=== PATIENT | female | born 1930 | race Caucasian/White ===

== ENCOUNTER 2017-03-24 13:41 | Emergency (ER) | payer MEDICARE ==
[2017-03-24 13:48] VITALS: RESP 16; TEMP 98; O2SAT 100
--- NOTE | 2017-03-24 14:39 | ED PDOC ---
Syncope/Near Syncope/Dizziness Time Seen by Provider: 03/24/17 13:54 Chief Complaint (Nursing): Dizziness/Lightheaded Chief Complaint (Provider): Dizziness/Lightheaded History Per: Patient, Family () History/Exam Limitations: no limitations Onset/Duration Of Symptoms: Hrs (2 hours) Current Symptoms Are (Timing): Better Additional Complaint(s): 86 y/o female with history of hypertension presents to the ED complaining of dizziness onset 2 hours ago. Patient said she walked into the kitchen and started feeling dizzy (room spinning). Her noticed she seemed unsteady and caught her and her one dose of blood pressure medications. Denies history of vertigo but reports having a similar episode yesterday. Denies chest pain, shortness of breath, headache, weakness, paresthesia and any further medical complaints. Patient reports feeling better upon arrival. PMD: Miles Simental MD Past Medical History Reviewed: Historical Data, Nursing Documentation, Vital Signs Vital Signs: Last Vital Signs Temp 98.0 F 03/24/17 13:47 Pulse 61 03/24/17 13:47 Resp 16 03/24/17 13:47 BP 126/69 03/24/17 13:47 Pulse Ox 100 03/24/17 13:47 - Medical History PMH: Arthritis, Dementia, HTN, Hyperlipidemia - Surgical History Surgical History: No Surg Hx - Family History Family History: States: Unknown Family Hx - Social History Current smoker - smoking cessation education provided: No Alcohol: None Drugs: Denies - Home Medications Home Medications: Ambulatory Orders Medication Instructions Recorded Memantine [Namenda] 10 mg PO BID 03/24/17 Olmesartan/Hydrochlorothiazide 1 tab PO DAILY 03/24/17 [Benicar Hct 40-25 mg Tablet] Simvastatin 10 mg PO DAILY 03/24/17 - Allergies Allergies/Adverse Reactions: Allergies Allergy/AdvReac Type Severity Reaction Status Date / Time No Known Allergies Allergy Verified 07/13/14 12:59 Review of Systems ROS Statement: Except As Marked, All Systems Reviewed And Found Negative (As per HPI, otherwise negative) Constitutional: Negative for: Weakness, Other (paresthesia) Cardiovascular: Negative for: Chest Pain Respiratory: Negative for: Shortness of Breath Neurological: Positive for: Dizziness. Negative for: Headache Physical Exam - Reviewed Nursing Documentation Reviewed: Yes Vital Signs Reviewed: Yes - Physical Exam Appears: Positive for: Non-toxic, No Acute Distress Head Exam: Positive for: ATRAUMATIC, NORMAL INSPECTION, NORMOCEPHALIC Skin: Positive for: Normal Color, Warm, Dry Eye Exam: Positive for: EOMI, Normal appearance, PERRL Neck: Positive for: Normal, Painless ROM Cardiovascular/Chest: Positive for: Regular Rate, Rhythm. Negative for: Murmur Respiratory: Positive for: Normal Breath Sounds. Negative for: Accessory Muscle Use, Respiratory Distress Gastrointestinal/Abdominal: Positive for: Normal Exam, Bowel Sounds, Soft. Negative for: Tenderness Back: Positive for: Normal Inspection. Negative for: L CVA Tenderness, R CVA Tenderness, Vertebral Tenderness Extremity: Positive for: Normal ROM. Negative for: Pedal Edema, Deformity Neurologic/Psych: Positive for: Alert, washer machine II-XII, Oriented (x3), Cerebellar Tests. Negative for: Motor/Sensory Deficits - ECG O2 Sat by Pulse Oximetry: 100 (RA) Pulse Ox Interpretation: Normal Medical Decision Making Medical Decision Making: Time: 14:17 Initial Impression: New onset of vertigo Plan: Head w/o contrast EKG CMP Ed urine dipstick CBC w/ diff PTT Prothrombin Time Chest x-ray Antivert 25 mg PO Glucose Ortho BP Urinalysis Reevalaution Time: 15:00 Patient is signed out to Dr. Arina Woodard pending full ER workup and reevaluation. Scribe Attestation: Documented by Wilmar Suárez acting as a scribe for Giulia Nielsen MD. Scribe Attestation: All medical record entries made by the Scribe were at my direction and personally dictated by me. I have reviewed the chart and agree that the record accurately reflects my personal performance of the history, physical exam, medical decision making, and the department course for this patient. I have also personally directed, reviewed, and agree with the discharge instructions and disposition. Disposition - Disposition Disposition: Transfer of Care Disposition Time: 15:00 Forms: [employer] (Hungarian) Patient Signed Over To: Arina Woodard (pending full ER workup and reevaluation)
[2017-03-24 15:07] LABS: BASO # 0.1 K/uL (0.0-0.2); BASO % 0.8 % (0.0-2.0); EOS # 0.2 K/uL (0.0-0.7); EOS % 3.3 % (0.0-4.0); LYMPH # 1.2 K/uL (1.0-4.3); LYMPH % 16.8 % (20.0-40.0); MEAN CELL VOLUME 89.1 fl (81.0-99.0); MEAN CORPUSCULAR HEMOGLOBIN 28.9 pg (27.0-31.0); MEAN CORPUSCULAR HGB CONC 32.5 g/dL (33.0-37.0); MONO # 0.4 K/uL (0.0-0.8); MONO % 5.5 % (0.0-10.0); NEUT # 5.3 K/uL (1.8-7.0); NEUT % 73.6 % (50.0-75.0); RED CELL DISTRIBUTION WIDTH 14.7 % (11.5-14.5); WHITE BLOOD COUNT 7.2 K/uL (4.8-10.8)
--- NOTE | 2017-03-24 15:11 | ED PDOC ---
- Laboratory Results Result Diagrams: 03/24/17 14:40 03/24/17 14:40 - ECG O2 Sat by Pulse Oximetry: 100 (RA) Medical Decision Making Medical Decision Making: Time: 15:00 Patient is signed over to me by Dr. Giulia Nielsen pending full ER workup, reassessment and final ER disposition. 340p Orthostatic vital signs demonstrate some dehydration. Fluids ordered. Labs demonstrate UTI. No emergently significant lab abnormalities. Time: 15:[address] FINDINGS: HEMORRHAGE: No intracranial hemorrhage. BRAIN: Diffuse cerebral atrophy and mild chronic microangiopathy are reiterated compared to the prior CT. No significant interval changes identified. There is no mass effect. Corticomedullary differentiation is stable and unremarkable. VENTRICLES: Unremarkable. No hydrocephalus. CALVARIUM: Unremarkable. PARANASAL SINUSES: Unremarkable as visualized. No significant inflammatory changes. MASTOID AIR CELLS: Unremarkable as visualized. No inflammatory changes. OTHER FINDINGS: None. IMPRESSION: Stable limited age related neuro degenerative changes are identified as compared prior head CT 05/19/2015. Follow-up CT or MRI are available as clinically warranted. 5p Orthostatic improved after IVF. Pt has no dizziness. Feels better, but hungry. Scribe Attestation: Documented by Wilmar Suárez acting as a scribe for Arina Woodard MD. Scribe Attestation: All medical record entries made by the Scribe were at my direction and personally dictated by me. I have reviewed the chart and agree that the record accurately reflects my personal performance of the history, physical exam, medical decision making, and the department course for this patient. I have also personally directed, reviewed, and agree with the discharge instructions and disposition. Disposition Counseled Patient/Family Regarding: Studies Performed, Diagnosis, Need For Followup (Findings faxed to Dr Simental's office), Rx Given - Clinical Impression Clinical Impression: Dizziness, UTI (urinary tract infection) - POA Present On Arrival: None - Disposition Referrals: Miles Simental MD [Family Provider] - 03/26/17 ([facility] DR [facility] IN[facility]) Disposition: Routine/Home Disposition Time: 17:00 Condition: IMPROVED Prescriptions: Meclizine HCl 25 mg PO BID PRN #20 tablet PRN Reason: Dizziness Nitrofurantoin Macrocrystals [Macrobid] 1 cap PO BID #14 cap Instructions: Dizziness (ED) Print Language: CROATIAN
[2017-03-24 15:15] LABS: ALB/GLOB RATIO 1.3 (1.0-2.1); ALKALINE PHOSPHATASE 84 U/L (38-126); ALT/SGPT 31 U/L (9-52); AST/SGOT 33 U/L (14-36); BILIRUBIN,TOTAL 0.7 mg/dl (0.2-1.3); BLOOD UREA NITROGEN 15 mg/dl (7-17); CALCIUM 9.3 mg/dL (8.4-10.2); CARBON DIOXIDE 30 mmol/L (22-30); CHLORIDE 100 mmol/L (98-107); GFR AFRICAN-AMERICAN > 60; GLUCOSE,RANDOM 117 mg/dL (65-105); POTASSIUM 4.6 MMOL/L (3.6-5.0); SODIUM 141 mmol/l (132-148); TOTAL PROTEIN 7.8 G/DL (6.3-8.2)
[2017-03-24 15:16] LABS: RBC URINE 4 /hpf (0-3); URINE BACTERIA RARE (<OCC); URINE BILIRUBIN NEGATIVE (NEGATIVE); URINE BLOOD NEGATIVE (NEGATIVE); URINE COLOR YELLOW (YELLOW); URINE GLUCOSE (UA) NEG (Normal); URINE KETONE NEGATIVE (NEGATIVE); URINE LEUKOCYTE ESTERASE MOD Leu/uL (Negative); URINE PROTEIN NEGATIVE (NEGATIVE); URINE UROBILINOGEN 0.2-1.0 mg/dL (0.2-1.0); WBC URINE 27 /hpf (0-5)
[2017-03-24 15:25] LABS: PARTIAL THROMBOPLASTIN TIME 31.6 Seconds (25.6-37.1)
[2017-03-24] MEDS ORDERED: Sodium Chloride 0.9% 500 ML IV STA (15:39)
--- NOTE | 2017-03-24 15:42 | CT ---
PROCEDURE: CT HEAD WITHOUT CONTRAST. HISTORY: Vertigo COMPARISON: Unenhanced head CT 05/19/2015. TECHNIQUE: Axial computed tomography images were obtained through the head/brain without intravenous contrast. Radiation dose: Total exam DLP = 825.94 mGy-cm. This CT exam was performed using one or more of the following dose reduction techniques: Automated exposure control, adjustment of the mA and/or kV according to patient size, and/or use of iterative reconstruction technique. FINDINGS: HEMORRHAGE: No intracranial hemorrhage. BRAIN: Diffuse cerebral atrophy and mild chronic microangiopathy are reiterated compared to the prior CT. No significant interval changes identified. There is no mass effect. Corticomedullary differentiation is stable and unremarkable. VENTRICLES: Unremarkable. No hydrocephalus. CALVARIUM: Unremarkable. PARANASAL SINUSES: Unremarkable as visualized. No significant inflammatory changes. MASTOID AIR CELLS: Unremarkable as visualized. No inflammatory changes. OTHER FINDINGS: None. IMPRESSION: Stable limited age related neuro degenerative changes are identified as compared prior head CT 05/19/2015. Follow-up CT or MRI are available as clinically warranted.
[2017-03-24 17:33] VITALS: BP 143/74; PULSE 60
--- NOTE | 2017-03-24 18:04 | RAD ---
HISTORY: Dizziness COMPARISON: Chest radiographs 07/13/2014. FINDINGS: LUNGS: No active pulmonary disease. PLEURA: No significant pleural effusion identified, no pneumothorax apparent. CARDIOVASCULAR: Normal. OSSEOUS STRUCTURES: No significant abnormalities. VISUALIZED UPPER ABDOMEN: Normal. OTHER FINDINGS: None. IMPRESSION: No interval acute cardiopulmonary disease appreciated.
--- NOTE | 2017-03-26 12:34 | CARD ---
APPROVED REPORT EKG Measurement Heart [id number] <Conclusion> Normal sinus rhythm Normal ECG
== END 2017-03-24 17:40 | disposition home or self-care (01) ==
LOC: H.ER 13:41
DX: R42 Dizziness and giddiness (principal); N39.0 Urinary tract infection, site not specified; E78.5 Hyperlipidemia, unspecified; F03.90 Unspecified dementia, unspecified severity, without behavioral disturbance, psychotic disturbance, mood disturbance, and anxiety; I10 Essential (primary) hypertension
CPT/HCPCS: 70450; 71010; 80053; 81003; 82948; 85025; 85610; 85730; 93005; 96360; 99285; J7040

== ENCOUNTER 2017-08-31 13:47 | Inpatient (IN) | payer OTHER ==
--- NOTE | 2017-08-31 14:42 | CT ---
PROCEDURE: CT HEAD WITHOUT CONTRAST. HISTORY: generalized weakness COMPARISON: CT head dated 03/24/2017. TECHNIQUE: Axial computed tomography images were obtained through the head/brain without intravenous contrast. Radiation dose: Total exam DLP = 765.5 mGy-cm. This CT exam was performed using one or more of the following dose reduction techniques: Automated exposure control, adjustment of the mA and/or kV according to patient size, and/or use of iterative reconstruction technique. FINDINGS: HEMORRHAGE: No intracranial hemorrhage. BRAIN: No mass effect or edema. Atrophy. Chronic microvascular ischemic changes. VENTRICLES: Prominent. No hydrocephalus. CALVARIUM: Unremarkable. PARANASAL SINUSES: Unremarkable as visualized. No significant inflammatory changes. MASTOID AIR CELLS: Unremarkable as visualized. No inflammatory changes. OTHER FINDINGS: None. IMPRESSION: No acute intracranial pathology. Age-related changes.
--- NOTE | 2017-08-31 14:58 | ED PDOC ---
HPI: General Adult Time Seen by Provider: 08/31/17 13:56 Chief Complaint (Nursing): Weakness/Neurological Deficit Chief Complaint (Provider): general weakness, difficulty breathing History Per: Patient, Family, Weight Clerk History/Exam Limitations: no limitations Onset/Duration Of Symptoms: Days (2 wks'), Gradual Current Symptoms Are (Timing): Still Present Severity: Moderate Additional Complaint(s): 87yo female arrives w son from Dr Simental's office where she presented earlier with generalized weakness, shortness of breathing and difficulty ambulating for last 10-14days. [facility] states [facility] and she had very difficult time ambulating, was constantly weak with cough, SOB and notes lower extremity pains. Denies falls, fever, chest pain, focal weakness, edema or syncope. Past Medical History Reviewed: Historical Data, Nursing Documentation, Vital Signs Vital Signs: Last Vital Signs Temp 98.1 F 08/31/17 14:04 Pulse 60 08/31/17 14:59 Resp 18 08/31/17 14:04 BP 129/69 08/31/17 14:04 Pulse Ox 98 08/31/17 14:59 - Medical History PMH: Arthritis, Dementia, HTN, Hyperlipidemia - Family History Family History: States: Unknown Family Hx - Living Arrangements Living Arrangements: With Family - Social History Current smoker - smoking cessation education provided: No - Home Medications Home Medications: Ambulatory Orders Medication Instructions Recorded Meclizine HCl 25 mg PO BID PRN #20 tablet 03/24/17 Memantine [Namenda] 10 mg PO BID 03/24/17 Nitrofurantoin Macrocrystals 1 cap PO BID #14 cap 03/24/17 [Macrobid] Olmesartan/Hydrochlorothiazide 1 tab PO DAILY 03/24/17 [Benicar Hct 40-25 mg Tablet] Simvastatin 10 mg PO DAILY 03/24/17 - Allergies Allergies/Adverse Reactions: Allergies Allergy/AdvReac Type Severity Reaction Status Date / Time No Known Allergies Allergy Verified 08/31/17 14:04 Review of Systems Constitutional: Positive for: Weakness, Malaise ENT: Negative for: Ear Pain, Throat Pain Cardiovascular: Positive for: Palpitations, Orthopnea. Negative for: Chest Pain Respiratory: Positive for: Cough, Shortness of Breath Gastrointestinal: Negative for: Vomiting, Abdominal Pain Genitourinary Female: Negative for: Dysuria, Hematuria Musculoskeletal: Positive for: Arm Pain, Back Pain, Leg Pain. Negative for: Neck Pain Skin: Negative for: Rash, Lesions, Jaundice Neurological: Positive for: Dizziness. Negative for: Numbness, Altered Mental Status Psych: Negative for: Suicidal ideation Physical Exam - Reviewed Nursing Documentation Reviewed: Yes Vital Signs Reviewed: Yes - Physical Exam Appears: Positive for: Non-toxic Head Exam: Positive for: ATRAUMATIC, NORMAL INSPECTION, NORMOCEPHALIC Skin: Positive for: Normal Color, Warm, DRY Eye Exam: Positive for: EOMI, Normal appearance, PERRL ENT: Positive for: Normal ENT Inspection Neck: Positive for: Normal, Painless ROM Cardiovascular/Chest: Positive for: Regular Rate, Rhythm Respiratory: Positive for: Decreased Breath Sounds Pulses-Radial (L): 3+/4+ Pulses-Radial (R): 3+/4+ Gastrointestinal/Abdominal: Positive for: Soft. Negative for: Tenderness, Guarding Back: Positive for: Normal Inspection Extremity: Positive for: Tenderness (b.l knees), Pedal Edema (trace) Neurologic/Psych: Positive for: Alert, Oriented. Negative for: Motor/Sensory Deficits - ECG ECG: Positive for: Interpreted By Ri ECG Rhythm: Positive for: Sinus Rhythm, Nonspecific Changes Rate: 60 (t wave changes) O2 Sat by Pulse Oximetry: 98 Pulse Ox Interpretation: Normal Medical Decision Making Medical Decision Making: workup for dyspnea and gen weakness initiated labs/cultures/ CT brain/ XRay knees and CXR Accession No. : [id number] Patient Name / ID : TOÑO SWAIN / [id number] Exam Date : 08/31/2017 14:33:35 ( Approved ) Study Comment : Sex / Age : F / 87Y Creator : Gato Sheehan MD Dictator : Gato Sheehan MD Sanitation Truck Driver : Studio Operator : Gato Sheehan MD Approver2 : Report Date : 08/31/2017 14:40:57 My Comment : PROCEDURE: CT HEAD WITHOUT CONTRAST. HISTORY: generalized weakness COMPARISON: CT head dated 03/24/2017. TECHNIQUE: Axial computed tomography images were obtained through the head/brain without intravenous contrast. Radiation dose: Total exam DLP = 765.5 mGy-cm. This CT exam was performed using one or more of the following dose reduction techniques: Automated exposure control, adjustment of the mA and/or kV according to patient size, and/or use of iterative reconstruction technique. FINDINGS: HEMORRHAGE: No intracranial hemorrhage. BRAIN: No mass effect or edema. Atrophy. Chronic microvascular ischemic changes. VENTRICLES: Prominent. No hydrocephalus. CALVARIUM: Unremarkable. PARANASAL SINUSES: Unremarkable as visualized. No significant inflammatory changes. MASTOID AIR CELLS: Unremarkable as visualized. No inflammatory changes. OTHER FINDINGS: None. IMPRESSION: No acute intracranial pathology. Age-related changes. Accession No. : [id number] Patient Name / ID : TOÑO SWAIN / [id number] Exam Date : 08/31/2017 14:18:09 ( Approved ) Study Comment : Sex / Age : F / 87Y Creator : regan paniagua Dictator : Gato Sheehan MD Sanitation Truck Driver : Studio Operator : Gato Sheehan MD Approver2 : Report Date : 08/31/2017 15:18:06 My Comment : HISTORY: chest pain/ r/o infiltrate COMPARISON: Chest radiograph dated 03/24/2017. TECHNIQUE: Chest PA and lateral FINDINGS: LUNGS: No active pulmonary disease. PLEURA: No significant pleural effusion identified. No pneumothorax apparent. CARDIOVASCULAR: Atherosclerotic aortic calcifications. Cardiomediastinal silhouette stably enlarged. OSSEOUS STRUCTURES: Unchanged. VISUALIZED UPPER ABDOMEN: Normal. OTHER FINDINGS: None. IMPRESSION: No active disease. Disposition - Clinical Impression Clinical Impression: Episode of generalized weakness - Patient ED Disposition Is Patient to be Admitted: Transfer of Care - Disposition Disposition: Transfer of Care Disposition Time: 15:42 Condition: FAIR Instructions: Weakness (ED) Forms: [employer] (Pashto) Patient Signed Over To: Jared Almaraz Handoff Comments: pending labs and dispo
--- NOTE | 2017-08-31 15:25 | RAD ---
HISTORY: chest pain/ r/o infiltrate COMPARISON: Chest radiograph dated 03/24/2017. TECHNIQUE: Chest PA and lateral FINDINGS: LUNGS: No active pulmonary disease. PLEURA: No significant pleural effusion identified. No pneumothorax apparent. CARDIOVASCULAR: Atherosclerotic aortic calcifications. Cardiomediastinal silhouette stably enlarged. OSSEOUS STRUCTURES: Unchanged. VISUALIZED UPPER ABDOMEN: Normal. OTHER FINDINGS: None. IMPRESSION: No active disease.
--- NOTE | 2017-08-31 15:26 | RAD ---
PROCEDURE: Bilateral Knee Radiographs. HISTORY: bilateral knee pain difficulty ambulating COMPARISON: None. FINDINGS: BONES: Right Knee: No acute fracture. Left Knee: No acute fracture. JOINTS: Right Knee: Tricompartmental narrowing, worst in the medial tibiofemoral compartment with mild degenerative spurring. Left knee: Tricompartmental narrowing. SOFT TISSUES: Right Knee: Normal. Left Knee: Normal. JOINT EFFUSION: Right Knee: None. Left Knee: None. OTHER FINDINGS: None. IMPRESSION: No demonstrated fracture or dislocation. Bilateral knee degenerative changes, right slightly worse than left.
[2017-08-31 15:40] LABS: BASO # 0.1 K/uL (0.0-0.2); BASO % 1.1 % (0.0-2.0); EOS # 0.3 K/uL (0.0-0.7); EOS % 4.7 % (0.0-4.0); HEMOGLOBIN 13.4 g/dL (12.0-16.0); LYMPH # 1.8 K/uL (1.0-4.3); LYMPH % 26.6 % (20.0-40.0); MEAN CELL VOLUME 88.5 fl (81.0-99.0); MEAN CORPUSCULAR HEMOGLOBIN 29.7 pg (27.0-31.0); MEAN CORPUSCULAR HGB CONC 33.5 g/dL (33.0-37.0); MEAN PLATELET VOLUME 8.6 fl (7.2-11.7); MONO # 0.5 K/uL (0.0-0.8); NEUT % 59.6 % (50.0-75.0); NRBC % 0.1 % (0.0-0.0); RBC 4.51 Mil/uL (3.80-5.20); RED CELL DISTRIBUTION WIDTH 14.7 % (11.5-14.5); WHITE BLOOD COUNT 6.7 K/uL (4.8-10.8)
[2017-08-31 15:49] LABS: ALB/GLOB RATIO 1.1 (1.0-2.1); ALBUMIN 3.8 g/dL (3.5-5.0); ALT/SGPT 32 U/L (9-52); AST/SGOT 51 U/L (14-36); BLOOD UREA NITROGEN 20 mg/dl (7-17); CALCIUM 9.4 mg/dL (8.4-10.2); GFR AFRICAN-AMERICAN > 60; GFR NON-AFRICAN AMERICAN > 60
--- NOTE | 2017-08-31 15:50 | ED PDOC ---
"- Laboratory Results Result Diagrams: 08/31/17 15:19 08/31/17 15:19 - ECG O2 Sat by Pulse Oximetry: 98 (RA) Pulse Ox Interpretation: Normal Medical Decision Making Medical Decision Making: Time: 1499 --Patient is endorsed is provider by Dr. Sid Lucas. Pending lab results and final disposition. Time: 2128 --CTA chest FINDINGS: Limitations: Motion artifact - mild to moderate. Streak artifact - mild. Pulmonary arteries: Multiple filling defect within lobar, segmental, subsegmental branches. No saddle embolus. Aorta: [id number] atherosclerotic disease. No aneurysm. Lungs: Minimal atelectasis/scarring. No consolidation. Mild apical scarring. Few calcified granulomas. Few pulmonary nodules, up to 0.3 cm. Pleural space: No significant effusion. No pneumothorax. Heart: Borderline cardiomegaly. No significant pericardial effusion. Mild coronary artery calcifications. Bowing of interventricular septum compatible with heart strain. Bones/joints: Degenerative changes of spine. No acute fracture. PRETTY LUNDBERGDES | Final Radiology Report CONFIDENTIALITY STATEMENT This report is intended only for use by the referring physician, and only in accordance with law. If you received this in error, call [phone]. Page 2 of 2 Soft tissues: Unremarkable. Lymph nodes: No pathologically enlarged lymph nodes. Gallbladder and bile ducts: Cholecystectomy. Kidneys and ureters: Probable 6.2 cm LEFT renal cyst. IMPRESSION: 1. Pulmonary emboli with heart strain. 2. Pulmonary nodules. For low-risk patients, no follow-up is necessary. For high -risk patients (smoking history or other known risk factors) an optional CT at 12 months could be performed. 3. Incidental/non-acute findings are described above. CT positive for PE. Pt is hemodynamically stable and not hypoxic. Some evidence of heart strain on CT but given other factors will not give tPa but rather tx with Lovenox. Echo in AM. Scribe Attestation: Documented by Yvette Teixeira, acting as a scribe for Jared Almaraz MD. Provider Scribe Attestation: All medical record entries made by the Scribe were at my direction and personally dictated by me. I have reviewed the chart and agree that the record accurately reflects my personal performance of the history, physical exam, medical decision making, and the department course for this patient. I have also personally directed, reviewed, and agree with the discharge instructions and disposition. Disposition - Clinical Impression Clinical Impression: Episode of generalized weakness, Pulmonary embolus - POA Present On Arrival: None - Disposition Disposition: Admitted as In-Patient Disposition Time: 21:51 Condition: FAIR Instructions: Weakness (ED) Forms: [employer] (Nigerien)"
[2017-08-31 15:58] LABS: B-TYPE NATRIURETIC PEPTIDE 614 pg/ml (0-900)
[2017-08-31 17:17] LABS: URINE BACTERIA OCC (<OCC); URINE BILIRUBIN NEGATIVE (NEGATIVE); URINE BLOOD NEGATIVE (NEGATIVE); URINE CLARITY CLEAR (Clear); URINE COLOR YELLOW (YELLOW); URINE GLUCOSE (UA) NEG (Normal); URINE LEUKOCYTE ESTERASE LARGE Leu/uL (Negative); URINE PROTEIN NEGATIVE (NEGATIVE); URINE UROBILINOGEN 0.2-1.0 mg/dL (0.2-1.0)
[2017-08-31 17:18] LABS: SQUAMOUS EPITHIAL 3 /hpf (0-5)
[2017-08-31 17:19] LABS: RENAL EPITHELIAL 2 /hpf (0-3)
[2017-08-31] MEDS ORDERED: Tmp-Smz 800 mg-160 mg DS Tab PO STA (17:25)
[2017-08-31] MEDS ORDERED: Tmp-Smz 800 mg-160 mg DS Tab ONE (18:16)
[2017-08-31] MEDS ORDERED: Sodium Chloride 0.9% 100 ML ONE (18:49)
[2017-08-31] MEDS ORDERED: Iodixanol 320 MG/ML 100 ML BOTTLE IV ONE (18:49)
--- NOTE | 2017-08-31 21:30 | CT ---
EXAM: CT Angiography Chest With Intravenous Contrast CLINICAL HISTORY: 87 years old, female; Signs and symptoms; Shortness of breath; Additional info: R/O pe TECHNIQUE: Axial computed tomographic angiography images of the chest with intravenous contrast using pulmonary embolism protocol. All CT scans at this facility use one or more dose reduction techniques, viz.: automated exposure control; ma/kV adjustment per patient size (including targeted exams where dose is matched to indication; i.e. head); or iterative reconstruction technique. MIP reconstructed images were created and reviewed. Coronal and sagittal reformatted images were created and reviewed. CONTRAST: 100 mL of [id number] administered intravenously. COMPARISON: CR - CHEST TWO VIEWS (PA/LAT) 2017-08-31 14:18 FINDINGS: Limitations: Motion artifact - mild to moderate. Streak artifact - mild. Pulmonary arteries: Multiple filling defect within lobar, segmental, subsegmental branches. No saddle embolus. Aorta: [id number] atherosclerotic disease. No aneurysm. Lungs: Minimal atelectasis/scarring. No consolidation. Mild apical scarring. Few calcified granulomas. Few pulmonary nodules, up to 0.3 cm. Pleural space: No significant effusion. No pneumothorax. Heart: Borderline cardiomegaly. No significant pericardial effusion. Mild coronary artery calcifications. Bowing of interventricular septum compatible with heart strain. Bones/joints: Degenerative changes of spine. No acute fracture. Soft tissues: Unremarkable. Lymph nodes: No pathologically enlarged lymph nodes. Gallbladder and bile ducts: Cholecystectomy. Kidneys and ureters: Probable 6.2 cm LEFT renal cyst. IMPRESSION: 1. Pulmonary emboli with heart strain. 2. Pulmonary nodules. For low-risk patients, no follow-up is necessary. For high-risk patients (smoking history or other known risk factors) an optional CT at 12 months could be performed. 3. Incidental/non-acute findings are described above.
[2017-08-31] MEDS ORDERED: Enoxaparin 80 mg Syringe SC ONE (22:00)
[2017-08-31] MEDS ORDERED: Pravastatin Sodium 20 MG TAB PO SCH (22:00)
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
--- NOTE | 2017-08-31 23:47 | US ---
EXAM: US Duplex Bilateral Lower Extremity Veins CLINICAL HISTORY: 87 years old, female; Signs and symptoms; Other: Pe TECHNIQUE: Real-time duplex ultrasound scan of the bilateral lower extremity veins integrating B-mode two-dimensional vascular structure, Doppler spectral analysis, color flow Doppler imaging and compression. COMPARISON: No relevant prior studies available. FINDINGS: Right deep veins: Normal color and spectral Doppler flow. Normal compressibility. No deep vein thrombosis. Right superficial veins: Unremarkable. Left deep veins: Normal color and spectral Doppler flow. Normal compressibility. No deep vein thrombosis. Left superficial veins: Unremarkable. Soft tissues: 3.5 x 1.2 x 3.2 cm hypoechoic lesion within left popliteal fossa. IMPRESSION: 1. No evidence of DVT within lower extremities. 2. Probable left Wilder's cyst.
[2017-09-01 06:23] LABS: MEAN CELL VOLUME 87.8 fl (81.0-99.0); MEAN CORPUSCULAR HEMOGLOBIN 29.5 pg (27.0-31.0); MEAN CORPUSCULAR HGB CONC 33.6 g/dL (33.0-37.0); RBC 4.42 Mil/uL (3.80-5.20); RED CELL DISTRIBUTION WIDTH 14.4 % (11.5-14.5); WHITE BLOOD COUNT 7.1 K/uL (4.8-10.8)
[2017-09-01 07:13] LABS: BLOOD UREA NITROGEN 15 mg/dl (7-17); CALCIUM 9.4 mg/dL (8.4-10.2); GFR AFRICAN-AMERICAN > 60; GFR NON-AFRICAN AMERICAN > 60
[2017-09-01 08:46] VITALS: O2SAT 98
[2017-09-01] MEDS ORDERED: Enoxaparin 80 mg Syringe SC SCH (09:00)
[2017-09-01] MEDS ORDERED: HCTZ/Losartan 12.5/50 Tab PO SCH (09:00)
[2017-09-01] MEDS ORDERED: Pneumococcal 23-Valent Vaccine IM ONE (09:00)
--- NOTE | 2017-09-01 09:01 | CP.CCUPN ---
CCU Subjective - Physician Review Subjective (Free Text): 87F sent into ER from PMDs office for eval of progressive Sob and hypotension, found to have evidence of PTE on CTA Chest, no hemodynamic compromise. Awake, non-distressed, already got OOB herself into the chair, denies any CP or exertional SOB. 96% SPO2 on RA. Other VS and I/Os reviewed. ROS: No other pertinent negs or positives on 10+ system review obtainable from intubated and sedated patient. Allergies: NKDA Home Meds: Aricept, Namenda, Vascepa, Singulair,Relafen, simvastatin, Olmesartan /HCTZ PMSFH: All other Nursing and physician documentation reviewed to date; no new pertinent info noted relevant to current medical problems. EXAM- HEENT: no icterus, no gaze preference, pupils equal and reactive NECK: No JVD, supple, carotids equal upstroke bilat/no bruits CHEST: decreased BS bases, no wheezes audible HEART: regular joanna, distant, S1S2, no rubs. ABD: soft, no distention, no tympany, no palp tenderness, BS hypoactive. EXT: No peripheral/ digital cyanosis, no calf tenderness or palpable cords, distal pulses intact and symmetrical. NEURO: no focal motor deficits SKIN: no rashes, warm and dry. LABS: WBC= 7.1 HGB= 13.0 PLTs= 289K Na= 139 K= 3.4 CL= 101 HCO3= 25 BUN/Cr= 15/0.8 BS= 101 IMPRESSION / MAJOR PROBLEMS NOW: 1. Acute Resp Insufficiency 2. Acute/Subacute PTE- mostly segmental/subsegmental. 3. Hypokalemia 4. Hypotension with h/o HTN PLAN: 1. Troponin is negative, venous LE Doppler US is negative; ECHO pending. Started on AC with Lovenox already, initiate outpatient AC today. 2. Supplement K. 3. Adjust outpatient anti-HTN meds. Watch HR on Aricept/Namenda. 4. Stable for Tele bed. CCU Objective - Vital Signs / Intake & Output Vital Signs (Last 4 hours): Vital Signs Temp Pulse Resp BP Pulse Ox 09/01/17 08:00 98.5 F 80 24 132/90 98 09/01/17 06:00 64 16 104/64 95 Intake and Output (Last 8hrs): Intake & Output 04/27/18 04/28/18 04/28/18 22:59 06:59 14:59 Intake Total 10 Output Total 150 Balance 10 -150 Intake: IV 10 Output: Urine 150 Urine, Voided 150
[2017-09-01 09:17] VITALS: BMI 28.9
--- NOTE | 2017-09-01 11:01 | CP.PCM.DIS ---
Provider - Provider Date of Admission: 08/31/17 21:47 Attending physician: Fela Parker MD Primary care physician: Dr. Simental Time Spent in preparation of Discharge (in minutes): 15 Hospital Course - Lab Results Lab Results: Most Recent Lab Values WBC 7.1 K/uL (4.8-10.8) 09/01/17 05:30 RBC 4.42 Mil/uL (3.80-5.20) 09/01/17 05:30 Hgb 13.0 g/dL (12.0-16.0) 09/01/17 05:30 Hct 38.8 % (34.0-47.0) 09/01/17 05:30 MCV 87.8 fl (81.0-99.0) 09/01/17 05:30 MCH 29.5 pg (27.0-31.0) 09/01/17 05:30 MCHC 33.6 g/dL (33.0-37.0) 09/01/17 05:30 RDW 14.4 % (11.5-14.5) 09/01/17 05:30 Plt Count 289 K/uL (130-400) 09/01/17 05:30 MPV 8.6 fl (7.2-11.7) 08/31/17 15:19 Neut % (Auto) 59.6 % (50.0-75.0) 08/31/17 15:19 Lymph % (Auto) 26.6 % (20.0-40.0) 08/31/17 15:19 [place] % (Auto) 8.0 % (0.0-10.0) 08/31/17 15:19 Eos % (Auto) 4.7 % (0.0-4.0) H 08/31/17 15:19 Baso % (Auto) 1.1 % (0.0-2.0) 08/31/17 15:19 Neut # (Auto) 4.0 K/uL (1.8-7.0) 08/31/17 15:19 Lymph # (Auto) 1.8 K/uL (1.0-4.3) 08/31/17 15:19 [place] # (Auto) 0.5 K/uL (0.0-0.8) 08/31/17 15:19 Eos # (Auto) 0.3 K/uL (0.0-0.7) 08/31/17 15:19 Baso # (Auto) 0.1 K/uL (0.0-0.2) 08/31/17 15:19 APTT 30.7 Seconds (25.6-37.1) 08/31/17 15:19 D-Dimer, Quantitative 2102 ng/mlDDU (0-230) H 08/31/17 16:57 Sodium 139 mmol/l (132-148) 09/01/17 05:30 Potassium 3.4 MMOL/L (3.6-5.0) L 09/01/17 05:30 Chloride 101 mmol/L (98-107) 09/01/17 05:30 Carbon Dioxide 25 mmol/L (22-30) 09/01/17 05:30 Anion Gap 16 (10-20) 09/01/17 05:30 BUN 15 mg/dl (7-17) 09/01/17 05:30 Creatinine 0.8 mg/dl (0.7-1.2) 09/01/17 05:30 Est GFR ( Amer) > 60 09/01/17 05:30 Est GFR (Non-Af Amer) > 60 09/01/17 05:30 POC Glucose (mg/dL) 106 mg/dL (65-110) 08/31/17 14:13 Random Glucose 101 mg/dL (65-105) 09/01/17 05:30 Calcium 9.4 mg/dL (8.4-10.2) 09/01/17 05:30 Total Bilirubin 0.7 mg/dl (0.2-1.3) 08/31/17 15:19 AST 51 U/L (14-36) H D 08/31/17 15:19 ALT 32 U/L (9-52) 08/31/17 15:19 Alkaline Phosphatase 71 U/L (38-126) 08/31/17 15:19 Total Creatine Kinase 70 U/L (30-135) 08/31/17 15:19 Troponin I 0.0260 ng/mL (0.00-0.120) 08/31/17 15:19 NT-Pro-B Natriuret Pep 614 pg/ml (0-900) 08/31/17 15:19 Total Protein 7.1 G/DL (6.3-8.2) 08/31/17 15:19 Albumin 3.8 g/dL (3.5-5.0) 08/31/17 15:19 Globulin 3.3 gm/dL (2.2-3.9) 08/31/17 15:19 Albumin/Globulin Ratio 1.1 (1.0-2.1) 08/31/17 15:19 Urine Color Yellow (YELLOW) 08/31/17 16:45 Urine Clarity Clear (Clear) 08/31/17 16:45 Urine pH 6.0 (5.0-8.0) 08/31/17 16:45 Ur Specific [place] 1.010 (1.003-1.030) 08/31/17 16:45 Urine Protein Negative mg/dL (NEGATIVE) 08/31/17 16:45 Urine Glucose (UA) Neg mg/dL (Normal) 08/31/17 16:45 Urine Ketones Negative mg/dL (NEGATIVE) 08/31/17 16:45 Urine Blood Negative (NEGATIVE) 08/31/17 16:45 Urine Nitrate Positive (NEGATIVE) H 08/31/17 16:45 Urine Bilirubin Negative (NEGATIVE) 08/31/17 16:45 Urine Urobilinogen 0.2-1.0 mg/dL (0.2-1.0) 08/31/17 16:45 Ur Leukocyte Esterase Large Charissa/uL (Negative) 08/31/17 16:45 Urine RBC (Auto) 3 /hpf (0-3) 08/31/17 16:45 Urine Microscopic WBC 30 /hpf (0-5) H 08/31/17 16:45 Ur Squamous Epith Cells 3 /hpf (0-5) 08/31/17 16:45 Ur Renal Epithelial Cell 2 /hpf (0-3) 08/31/17 16:45 Urine Bacteria Occ (<OCC) H 08/31/17 16:45 - Hospital Course Hospital Course: 87 y/o female with HTN, HLD, and dementia went to her PCP's office complaining of generalized weakness, difficulty ambulating and SOB. Per family, she had the symptoms for about 2 weeks, but worsened acutely over past few days. She did travel by plane to [facility] just before the symptoms started. Denies f/c/CP/or syncope. Per report she did have low BP at the PCP's office. No prior history of DVT or PE. In ER for CTA chest showed multiple segmental and subsegmental filling defects : (1. Pulmonary emboli with heart strain. ) Patient was admitted in ICU for close monitoring , placed on monitor,strated on Lovenox therapeutic LE Doppler showed no DVT . She remained hemodynamically stable, feeling well, saturating 98 % in RA , sinus rhythm on monitor HR 63 BP 139/69 Discussed all test results with patient and family members. patient has very good family support . Will discharge her home on eliquis [place] 4 [place]. Explained increased risk of bleeding while on eliquis. Her UA resulted as cloudy witH LE, nitrites and bacteria. Will start on PO bactrim for UTI for 5 days Advise to follow up with PMD in 1 week 1.Pulmonary embolus -- most likely subacute 2. UTI 3.Hypertension - controlled 4. Dementia 5. Dyslipidemia Discharge Exam - Head Exam Head Exam: ATRAUMATIC, NORMOCEPHALIC - Eye Exam Eye Exam: EOMI, Normal appearance, PERRL Pupil Exam: NORMAL ACCOMODATION - ENT Exam ENT Exam: Mucous Membranes Moist, Normal Exam - Neck Exam Neck exam: Full Rom, Normal Inspection - Respiratory Exam Respiratory Exam: Clear to PA & Lateral, NORMAL BREATHING PATTERN. absent: Rales, Rhonchi, Wheezes - Cardiovascular Exam Cardiovascular Exam: REGULAR RHYTHM, RRR, +S1, +S2. absent: JVD - GI/Abdominal Exam GI & Abdominal Exam: Normal Bowel Sounds, Soft. absent: Guarding, Rebound, Tenderness - Rectal Exam Rectal Exam: Deferred - Extremities Exam Extremities exam: normal capillary refill, normal inspection, pedal pulses present - Back Exam Back exam: NORMAL INSPECTION - Neurological Exam Neurological exam: Alert, CN II-XII Intact, Oriented x3 - Psychiatric Exam Psychiatric exam: Normal Affect, Normal Mood - Skin Skin Exam: Dry, Normal Color, Warm Discharge Plan - Discharge Medications Prescriptions: Apixaban [Eliquis] 10 mg PO BID #60 tab Sulfamethoxazole/Trimethoprim [Bactrim DS 800 mg-160 mg] 1 tab PO Q12 #10 tab - Follow Up Plan Condition: STABLE Disposition: HOME/ ROUTINE Patient education suggested?: Yes Instructions: Urinary Tract Infection, Adult (DC), Pulmonary Embolism (Blood Clot in the Lungs) (DC), Apixaban, Weakness (ED) Referrals: Miles Simental MD [Family Provider] -
[2017-09-01] MEDS ORDERED: Tmp-Smz 800 mg-160 mg DS Tab PO SCH (11:15)
--- NOTE | 2017-09-01 12:31 | CARD ---
APPROVED REPORT EXAM: Two-dimensional and M-mode echocardiogram with Doppler and color Doppler. Other Information Quality : AverageRhythm : INDICATION Pericardial Effusion 2D DIMENSIONS IVSd1.52 (0.7-1.1cm)LVDd3.65 (3.9-5.9cm) PWd1.26 (0.7-1.1cm)LVDs2.40 (2.5-4.0cm) FS (%) 34.2 % M-Mode DIMENSIONS Left Atrium (MM)3.97 (2.5-4.0cm)IVSd1.59 (0.7-1.1cm) Aortic Root2.90 (2.2-3.7cm)LVDd4.84 (4.0-5.6cm) Aortic Cusp Exc.1.67 (1.5-2.0cm)PWd1.47 (0.7-1.1cm) FS (%) 30 %LVDs3.36 (2.0-3.8cm) Mitral Valve MV E Ynltqwwl97.9cm/sMV DECEL [id number] A Dlmfrqwr24.8cm/s MV MLF111hgY/A ratio0.7MVA (PHT)1.96cm2 TDI Lateral E' Peak V7.41cm/sE/Lateral E'6.6E/Medial E'0.0 Pulmonary Valve PV Peak Wdsyhcfy780.8cm/s Tricuspid Valve TR Peak Xiicdwlt617xg/sTR Peak Gr.59mmHg LEFT VENTRICLE The left ventricle is normal in size. There is normal left ventricular wall thickness on the 2D study. The left ventricular function is normal. The left ventricular ejection fraction is - 55%. The inferior and posterior mendoza appear hypokinetic. There is paradoxical septal motion. The other segments of the LV have good contraction. Transmitral Doppler flow pattern is Grade I-abnormal relaxation pattern. No left ventricle thrombus noted on this study. There is no ventricular septal defect visualized. There is no left ventricular aneurysm. There is no mass noted in the left ventricle. RIGHT VENTRICLE The right ventricle appears moderately dilated on some 2D views. There is normal right ventricular wall thickness. The right ventricular systolic function is normal. ATRIA The left atrium size is normal. There is no thrombus suspected in the left atrium. The right atrium appears mildly dilated on some 2D views. The interatrial septum is intact with no evidence for an atrial septal defect. AORTIC VALVE The aortic valve is normal in structure. No aortic regurgitation is present. There is no aortic valvular stenosis. MITRAL VALVE The mitral valve is normal in structure. There is no evidence of mitral valve prolapse. There is no mitral valve stenosis. There is no mitral valve regurgitation noted. TRICUSPID VALVE The tricuspid valve is normal in structure. There is moderate tricuspid regurgitation. Right ventricular systolic pressure is estimated at 86 mmHg. There is no tricuspid valve prolapse or vegetation. There is no tricuspid valve stenosis. PULMONIC VALVE The pulmonary valve is normal in structure. There is trace pulmonic valvular regurgitation. GREAT VESSELS The aortic root is normal in size. The IVC is normal in size and collapses >50% with inspiration. PERICARDIAL EFFUSION There is a small anterior echo free space. There is no pleural effusion. <Conclusion> The study is only of fair quality. The left ventricle is normal in size and wall thickness on the 2D study.. The left ventricular function is normal. The left ventricular ejection fraction is - 55%. The right ventricle is moderately dilated and the right atrium is mildly dilated. The aortic, mitral and tricuspid valves are normal. There is moderate tricuspid regurgitation. Right ventricular systolic pressure is estimated at 86 mmHg which is severe pulmonary hypertension..
--- NOTE | 2017-09-01 12:37 | CARD ---
APPROVED REPORT EKG Measurement Heart [id number] <Conclusion> Normal sinus rhythm Nonspecific T wave abnormality Abnormal ECG artefact present
[2017-09-01 14:00] VITALS: BP 145/92; PULSE 76; RESP 21; TEMP 98.1
== END 2017-09-01 14:30 | disposition home or self-care (01) | DRG 176 ==
LOC: H.ER 13:47 → H.ERHOLD 21:47 → H.ICU/CCU 09-01 00:57
PROVIDERS: ADMIT Internal Medicine; ATTEND Internal Medicine
DX: I26.99 Other pulmonary embolism without acute cor pulmonale (principal); N39.0 Urinary tract infection, site not specified; I10 Essential (primary) hypertension; E78.5 Hyperlipidemia, unspecified; F03.90 Unspecified dementia, unspecified severity, without behavioral disturbance, psychotic disturbance, mood disturbance, and anxiety; Z86.711 Personal history of pulmonary embolism; I27.20 Pulmonary hypertension, unspecified